=== PATIENT | female | born 1970 | race Caucasian/White ===

== ENCOUNTER → 2021-06-15 | Outpatient (CLI) | payer OTHER ==
--- NOTE | 2021-06-15 13:54 | P.BASOAP ---
Subjective Progress Note Date: 06/15/21 Principal diagnosis: Morbid obesity Patient here today for evaluation. She had an upper GI that shows no evidence of prolapse or erosion. Band does not appear overly tight. She has gained significant weight since her band was emptied of 5 mL in March. She would like more fluid added. Objective - Vital Signs Vital signs: Intake & Output 06/14/21 06/15/21 06/15/21 18:59 06:59 18:59 Weight 88.451 kg - Exam Abdomen: Soft, nontender, nondistended Assessment/Plan (1) Morbid obesity Narrative/Plan: Will proceed with LAP-BAND adjustment at this time.The patient's lap band port was palpated. The site was aseptically prepped. The Gotti needle was advanced into the port. A total of 3 ml of fluid was added. Pressure was held and a sterile dressing was applied. Plan: Date: Initial Weight: Initial BMI: Current Weight: 88.451 kg Current BMI: Type of Surgery: Total Volume in Band: 0 Previous Volume: Volume Removed: Volume Added: Band Size:
[2021-06-15 14:39] VITALS: BP 140/89; PULSE 59; TEMP 98.9; BMI 31.4
--- NOTE | 2021-06-15 17:47 | FL ---
SINGLE CONTRAST ESOPHAGRAM: CLINICAL HISTORY: 51-year-old female, E66.01 morbid obesity, arm and 3.10, dysphagia. Patient was in 2009, complains of dysphagia and reflux. Fluid was removed from the band 2 months ago. TECHNIQUE: Single contrast exam performed with thin barium. Total fluoroscopy time: 1 minute 6 seconds. Total images: 11. FINDINGS: The patient swallowed oral contrast without difficulty or delay. Esophagus shows normal course and ca liber. Mild tertiary peristaltic waves are demonstrated resulting in occasional intraesophageal reflu x. Laparoscopic banding device is noted to be in place and is appropriately positioned in proximal [facility], just below the Gastroesophageal junction. There is good flow of contrast along the course of the lap band. IMPRESSION: 1. Lap band in appropriate position without evidence for prolapse. Satisfactory mild restriction acro ss the lap band. 2. Mild dysmotility within the lower esophagus resulting in occasional intraesophageal reflux.
== END | disposition home or self-care (01) ==
LOC: RADUSWWP 12:24
PROVIDERS: ATTEND Surgery
DX: R13.10 Dysphagia, unspecified (principal)
CPT/HCPCS: 74220; G0463; 99213

== ENCOUNTER → 2022-10-25 | Outpatient (CLI) | payer BC, OTHER ==
[2022-10-25 15:33] VITALS: BP 133/82; PULSE 68; RESP 16; TEMP 97.7; BMI 30.8
--- NOTE | 2022-10-25 15:49 | P.BASOAP ---
Subjective Progress Note Date: 10/25/22 Principal diagnosis: Morbid obesity Patient returns for recheck. She was last seen in June of last year. She has lost 4 pounds since that time. Overall feels well. She does admit to rare episodes of phlegm regurgitation. She says she saw blood in that 2 times with the last episode a few months ago. No dysphagia. No odynophagia. Patient says she thinks she may be due for a colonoscopy although admits her last one was 1-2 years ago. Patient is happy with level of restriction. She does feel her port may be moving. Wanted to have us look at that. Objective - Vital Signs Vital signs: Vital Signs Temp 97.7 F 10/25/22 15:31 Pulse 68 10/25/22 15:31 Resp 16 10/25/22 15:31 BP 133/82 10/25/22 15:31 Pulse Ox FiO2 Intake & Output 10/24/22 10/25/22 10/25/22 18:59 06:59 18:59 Weight 86.636 kg - Exam Abdomen: Soft, nontender, nondistended, port in place left upper quadrant without mobility may be slightly angulated anteriorly Assessment/Plan (1) Morbid obesity Narrative/Plan: Overall patient doing fairly well. Patient did have 2 episodes of possible hematemesis. Recommend EGD. If patient is due for colonoscopy can be performed simultaneously. Patient will discuss with her primary care physician whether she is due for colonoscopy. If so we'll proceed with upper and lower endoscopy either here or in [place]. If no colonoscopy needed recommend EGD either here or in [place]. Plan: Date: 10/25/22 Initial Weight: 106.594 kg Initial BMI: 37.9 Current Weight: 86.636 kg Current BMI: 30.8 Type of Surgery: Adjustable Gastric Banding Total Volume in Band: 3 Previous Volume: Volume Removed: Volume Added: Band Size:
== END ==
LOC: BARWHC3 15:11
PROVIDERS: ATTEND Surgery
DX: E66.01 Morbid (severe) obesity due to excess calories (principal); Z68.30 Body mass index [BMI] 30.0-30.9, adult
CPT/HCPCS: 99211